=== PATIENT | male | born 1980 | race African-American/Black ===

== ENCOUNTER → 2021-07-30 | Outpatient (CLI) | payer SELFPAY | LOC: LAB FS 08:00 → MERGE 16:15 | PROVIDERS: ATTEND Family Medicine | DX: R61 Generalized hyperhidrosis (principal) | CPT/HCPCS: 87040 ==

== ENCOUNTER → 2021-07-31 | Outpatient (CLI) | payer SELFPAY | LOC: LAB FS 08:35 | PROVIDERS: ATTEND Family Medicine | DX: R61 Generalized hyperhidrosis (principal) ==

== ENCOUNTER 2022-04-16 11:32 | Emergency (ER) | payer SELFPAY ==
[~2022-04-16] VITALS: Ht 180 cm; Wt 91.0 kg
[2022-04-16 11:52] LABS: BASOPHILS # (AUTO) 0.1 10^3/uL (0.0-0.1); BASOPHILS % (AUTO) 1 % (0-10); EOSINOPHILS # (AUTO) 0.9 10^3/uL (0.0-0.3); EOSINOPHILS % (AUTO) 11 % (0-10); HEMATOCRIT 44 % (40-54); HEMOGLOBIN 15.3 g/dL (13.3-17.7); LYMPHOCYTES # (AUTO) 1.9 10^3/uL (1.0-4.0); LYMPHOCYTES % (AUTO) 23 % (12-44); MEAN CORPUSCULAR HEMOGLOBIN 31 pg (25-34); MEAN CORPUSCULAR HGB CONC 35 g/dL (32-36); MEAN CORPUSCULAR VOLUME 89 fL (80-99); MEAN PLATELET VOLUME 9.5 fL (9.0-12.2); MONOCYTES # (AUTO) 0.7 10^3/uL (0.0-1.0); MONOCYTES % (AUTO) 8 % (0-12); NEUTROPHILS # (AUTO) 4.7 10^3/uL (1.8-7.8); NEUTROPHILS % (AUTO) 57 % (42-75); PLATELET COUNT 373 10^3/uL (130-400); WHITE BLOOD COUNT 8.2 10^3/uL (4.3-11.0)
--- NOTE | 2022-04-16 11:57 | Diagnostic Imaging Report ---
EXAMINATION: Chest 1 view HISTORY: Chest pain. COMPARISON: None available. FINDINGS: Heart size and pulmonary vasculature are normal. The lungs are clear without consolidation, pleural effusion, or pneumothorax. The osseous structures are intact. IMPRESSION: 1. No acute radiographic abnormality in the chest. Dictated by: Dictated on workstation # [id number]
--- NOTE | 2022-04-16 12:05 | ED Chest Pain ---
General Chief Complaint: Chest Wall Stated Complaint: BREATHING DISCOMFORT Nursing Triage Note: Pt states that he tested positive for covid 2 months ago while in drug/alcohol treatment. He had no symptoms at the time. Started having sharp left side chest pain when he takes a deep breath yesterday. Went to walk in care today and they sent him by EMS to the ER. EMS started a saline lock in the left AC and gave him 4 baby ASA en route to the ER. Pt in no acute distress, lungs clear and pain is intermittent with deep inspiration. present at bedside. Source: patient Exam Limitations: no limitations History of Present Illness Date Seen by Provider: Apr 16, 2022 Time Seen by Provider: 11:45 Initial Comments Patient is a 41-year-old male with history of IV drug use and COVID infection 2 months ago presents with intermittent sharp left-sided chest pain upon taking a deep breath. He was seen at [facility] earlier and referred to the ED for additional evaluation. He currently denies chest pain fever or shortness of breath. He reports nasal congestion rhinorrhea and occasional cough. No other acute symptoms or complaints. No history of CAD. Timing/Duration: 1 day Severity/Quality: mild Location: other Radiation: other Activities at Onset: other Prior CP/Workup: other Modifying Factors: improves with other Allergies and Home Medications Allergies Coded Allergies: No Known Drug Allergies (Unverified , 08/01/21) Patient Home Medication List Home Medication List Reviewed: Yes Review of Systems Review of Systems Constitutional: see HPI EENTM: See HPI Respiratory: See HPI Cardiovascular: See HPI Gastrointestinal: See HPI Genitourinary: See HPI Musculoskeletal: see HPI Skin: see HPI Psychiatric/Neurological: See HPI Endocrine: See HPI Hematologic/Lymphatic: See HPI All Other Systems Reviewed Negative Unless Noted: No Past Opsivvn-Gohcci-Hmxesr Hx Patient Social History Tobacco Use?: Yes Tobacco type used: Cigarettes Smoking Status: Current Everyday Smoker Use of E-Cig and/or Vaping dev: No Substance use?: Yes Additional substance use comme: recent rehab in [place] two months ago, no drugs since then Alcohol Use?: Yes Pt feels they are or have been: No Physical Exam Vital Signs Vital Signs - First Documented Capillary Refill : Less Than 3 Seconds Height, Weight, BMI Height: 5'10.00" Weight: 190lbs. oz. 86.078593hz; 28.00 BMI Method:Stated General Appearance: No Apparent Distress, WD/WN HEENT: PERRL/EOMI, Normal ENT Inspection Neck: Normal Inspection, Non Tender Respiratory: Chest Non Tender, Lungs Clear, Normal Breath Sounds Cardiovascular: Regular Rate, Rhythm, No Edema Gastrointestinal: Non Tender, Soft Neurologic/Psychiatric: Alert, Oriented x3, Normal Mood/Affect Focused Exam Sepsis Stage: Ruled Out Progress/Results/Core Measures Results/Orders Lab Results Laboratory Tests Test 04/16/22 11:39 04/16/22 13:22 Range/Units White Blood Count 8.2 4.3-11.0 10^3/uL Red Blood Count 4.99 4.30-5.52 10^6/uL Hemoglobin 15.3 13.3-17.7 g/dL Hematocrit 44 40-54 % Mean Corpuscular Volume 89 80-99 fL Mean Corpuscular Hemoglobin 31 25-34 pg Mean Corpuscular Hemoglobin Concent 35 32-36 g/dL Red Cell Distribution Width 13.2 10.0-14.5 % Platelet Count 373 130-400 10^3/uL Mean Platelet Volume 9.5 9.0-12.2 fL Immature Granulocyte % (Auto) 1 % Neutrophils (%) (Auto) 57 42-75 % Lymphocytes (%) (Auto) 23 12-44 % Monocytes (%) (Auto) 8 0-12 % Eosinophils (%) (Auto) 11 H 0-10 % Basophils (%) (Auto) 1 0-10 % Neutrophils # (Auto) 4.7 1.8-7.8 10^3/uL Lymphocytes # (Auto) 1.9 1.0-4.0 10^3/uL Monocytes # (Auto) 0.7 0.0-1.0 10^3/uL Eosinophils # (Auto) 0.9 H 0.0-0.3 10^3/uL Basophils # (Auto) 0.1 0.0-0.1 10^3/uL Immature Granulocyte # (Auto) 0.1 0.0-0.1 10^3/uL D-Dimer 0.58 H 0.00-0.49 UG/ML Sodium Level 135 135-145 MMOL/L Potassium Level 3.9 3.6-5.0 MMOL/L Chloride Level 101 98-107 MMOL/L Carbon Dioxide Level 24 21-32 MMOL/L Anion Gap 10 5-14 MMOL/L Blood Urea Nitrogen 13 7-18 MG/DL Creatinine 0.65 0.60-1.30 MG/DL Estimat Glomerular Filtration Rate 121 BUN/Creatinine Ratio 20 Glucose Level 131 H 70-105 MG/DL Calcium Level 9.1 8.5-10.1 MG/DL Corrected Calcium 9.1 8.5-10.1 MG/DL Total Bilirubin < 0.2 0.1-1.0 MG/DL Aspartate Amino Transf (AST/SGOT) 24 5-34 U/L Alanine Aminotransferase (ALT/SGPT) 19 0-55 U/L Alkaline Phosphatase 129 40-136 U/L Troponin I < 0.30 <0.30 NG/ML Total Protein 7.8 6.4-8.2 GM/DL Albumin 4.0 3.2-4.5 GM/DL Influenza Type A (RT-PCR) Not Detected Not Detecte Influenza Type B (RT-PCR) Not Detected Not Detecte SARS-CoV-2 RNA (RT-PCR) Not Detected Not Detecte Urine Opiates Screen NEGATIVE NEGATIVE Urine Oxycodone Screen NEGATIVE NEGATIVE Urine Methadone Screen NEGATIVE NEGATIVE Urine Propoxyphene Screen NEGATIVE NEGATIVE Urine Barbiturates Screen NEGATIVE NEGATIVE Ur Tricyclic Antidepressants Screen NEGATIVE NEGATIVE Urine Phencyclidine Screen NEGATIVE NEGATIVE Urine Amphetamines Screen POSITIVE H NEGATIVE Urine Methamphetamines Screen POSITIVE H NEGATIVE Urine Benzodiazepines Screen NEGATIVE NEGATIVE Urine Cocaine Screen NEGATIVE NEGATIVE Urine Cannabinoids Screen NEGATIVE NEGATIVE My Orders Orders - VICKY MERA DO Cbc With Automated Diff (04/16/22 11:43) Comprehensive Metabolic Panel (04/16/22 11:43) Ekg Tracing (04/16/22 11:43) Chest 1 View Ap/Pa Only (04/16/22 11:43) Troponin I Fs (04/16/22 11:43) Fibrin Degradation Products (04/16/22 11:43) Covid 19 Inhouse Test (04/16/22 11:52) Influenza A And B By Pcr (04/16/22 11:52) Isolation Central Supply Req (04/16/22 11:52) Drug Screen Stat (Urine) (04/16/22 11:58) Ct Angio Chest W (04/16/22 12:55) Iohexol Injection (Omnipaque 350 Mg/Ml 1 (04/16/22 13:00) Received Contrast (Hold Metformin- Contr (04/16/22 13:00) Ns (Ivpb) (Sodium Chloride 0.9% Ivpb Bag (04/16/22 13:00) Medications Given in ED Current Medications Medications Dose Ordered Sig/Nickolas Route Start Time Stop Time Status Last Admin Dose Admin Iohexol 100 ml ONCE ONCE IV 04/16/22 13:00 04/16/22 13:01 DC 04/16/22 13:11 75 ML Sodium Chloride 100 ml ONCE ONCE IV 04/16/22 13:00 04/16/22 13:01 DC 04/16/22 13:11 100 ML Vital Signs/I&O 04/16/22 04/16/22 11:34 11:34 Temp 36.4 36.4 Pulse 80 80 Resp 18 18 B/P (MAP) 127/96 127/96 (106) Pulse Ox 98 98 O2 Delivery Room Air Room Air Blood Pressure Mean: 106 Departure Communication (Admissions) Chest x-ray:NAD EKG: Normal sinus rhythm, nonspecific ST segment elevation. Patient with chest wall pain yesterday with unremarkable ED work-up with the exception of methamphetamines. Vital signs stable, troponin negative CTA reassuring. Recommendations are outpatient drug rehab and PCP follow-up for additional cardiac screening. Return precautions reviewed. Patient verbalizes understanding agreement discharge instructions prior to departure. Impression Primary Impression: Chest wall pain Additional Impression: Methamphetamine abuse Disposition: HOME, SELF-CARE Condition: Stable Departure-Patient Inst. Decision time for Depature: 14:10 Referrals: ISABELLA REYES MD (PCP) Primary Care Physician Add. Discharge Instructions: You were evaluated emergency department for chest pain. EKG lab and imaging studies were performed and are nondiagnostic. The exact cause of your chest pain has not been determined but may be related to methamphetamine abuse. Discontinue all drug use and follow-up with your PCP for further cardiac testing and outpatient rehab. Return to the ED if new or concerning symptoms. All discharge instructions reviewed with patient and/or family. Voiced understanding. VICKY MERA DO Apr 16, 2022 12:05
[2022-04-16 12:16] LABS: ALKALINE PHOSPHATASE 129 U/L (40-136); BILIRUBIN,TOTAL < 0.2 MG/DL (0.1-1.0); BUN/CREATININE RATIO 20; CALCIUM 9.1 MG/DL (8.5-10.1); CARBON DIOXIDE 24 MMOL/L (21-32); CHLORIDE 101 MMOL/L (98-107); CREATININE SERUM 0.65 MG/DL (0.60-1.30); GFR ESTIMATED 121; GLUCOSE 131 MG/DL (70-105); POTASSIUM 3.9 MMOL/L (3.6-5.0); SODIUM 135 MMOL/L (135-145)
[2022-04-16 12:17] LABS: ALANINE AMINOTRANSFERASE 19 U/L (0-55); TOTAL PROTEIN 7.8 GM/DL (6.4-8.2)
[2022-04-16] MEDS ORDERED: HOLD METFORMIN - RECEIVED CONTRAST 20 ML VIAL IV SCH (13:00)
[2022-04-16] MEDS ORDERED: NS 100 ML (IVPB) BAG IV ONE (13:00)
[2022-04-16] MEDS ORDERED: IOHEXOL 350 MG/ML 100 ML (OMNIPAQUE 350) VIAL IV ONE (13:00)
--- NOTE | 2022-04-16 13:39 | Diagnostic Imaging Report ---
EXAMINATION: CT angiography of the chest. TECHNIQUE: Contrast enhanced thin section helical images were obtained through the chest with intravenous contrast timed for the optimal opacification of the arterial structures per CTA protocol. Post-processing, reconstructions and interpretation of angiographic images of the vessels was performed. 3D MIP reconstructions were performed and reviewed. All CT scans use one or more of the following dose optimizing techniques: automated exposure control, MA and/or KvP adjustment based on a patient size and exam type, or iterative reconstruction. HISTORY: Chest pain COMPARISON: None available. FINDINGS: Vascular: No filling defects within the pulmonary arteries. Thoracic aorta is normal in caliber. Thyroid: The thyroid is normal. Mediastinum: Heart size is normal without significant pericardial effusion. No suspicious lymphadenopathy. Lungs and airways: Trace right pleural effusion with adjacent atelectasis. No pneumothorax. The airways are normal. Upper abdomen: The subphrenic structures are normal. Musculoskeletal: No suspicious osseous lesion or compression fracture. IMPRESSION: 1. No findings of pulmonary embolus or other acute abnormality in the chest. Dictated by: Dictated on workstation # [id number]
[2022-04-16 13:47] LABS: AMPHETAMINE SCREEN, URINE POSITIVE (NEGATIVE); BARBITURATE SCREEN URINE NEGATIVE (NEGATIVE); BENZODIAZEPINES SCREEN URINE NEGATIVE (NEGATIVE); CANNABINOID SCREEN, URINE NEGATIVE (NEGATIVE); COCAINE SCREEN URINE NEGATIVE (NEGATIVE); METHADONE STAT NEGATIVE (NEGATIVE); OPIATE SCREEN URINE NEGATIVE (NEGATIVE); OXYCODONE STAT NEGATIVE (NEGATIVE); PROPOXYPHENE STAT NEGATIVE (NEGATIVE); TRICYCLIC ANTIDEPRESSANTS SCRE NEGATIVE (NEGATIVE)
[2022-04-16 14:37] VITALS: BP 138/71
== END 2022-04-16 14:37 | disposition home or self-care (01) ==
LOC: ER FS 11:33
DX: F15.10 Other stimulant abuse, uncomplicated (principal); R07.89 Other chest pain; F17.210 Nicotine dependence, cigarettes, uncomplicated; Z20.822 Contact with and (suspected) exposure to COVID-19; Z28.310 Unvaccinated for COVID-19
CPT/HCPCS: 36415; 71045; 71275; 80053; 80306; 84484; 85025; 85379; 87636; 93005; Q9967